=== PATIENT | female | born 1990 | race Caucasian/White ===

== ENCOUNTER 2023-07-15 09:59 | Emergency (ER) | payer OTHER, SELFPAY ==
[2023-07-15 10:41] VITALS: BP 133/70; PULSE 68; RESP 18; TEMP 37.1; O2SAT 99; BMI 23.4
[2023-07-15] MEDS: Ondansetron ODT 4 MG TAB.RAPDIS TRANSLINGU (10:47)
[2023-07-15 12:07] LABS: MANUAL DIFF FLAG NO
[2023-07-15 12:09] LABS: Basophils Percent Auto 0.5 % (0-2); Eosinophils Absolute Auto 0.5 X10*3/uL (0.0-0.4); Eosinophils Percent Auto 6.2 % (0-4); Hematocrit 43.1 % (37.0-47.0); Hemoglobin 14.7 g/dl (12.0-16.0); Imm Gran Abs Auto 0.02 X10*3/uL (0.00-0.03); Imm Gran Pct Auto 0.3 % (0.0-0.4); Lymphocytes Absolute Auto 2.3 X10*3/uL (1.2-4.9); Mean Corpuscular HGB Conc 34.1 g/dl (31.0-35.0); Mean Corpuscular Hemoglobin 30.8 pg (27.0-33.0); Mean Corpuscular Volume 90.2 fL (80.0-98.0); Mean Platelet Volume 10.2 fL (9.4-12.3); Monocytes Absolute Auto 0.4 X10*3/uL (0.1-1.2); Monocytes Percent Auto 5.4 % (2-11); Neutrophils Absolute Auto 4.6 x10*3/uL (2.0-8.3); Neutrophils Percent Auto 58.6 % (45-73); Platelet Count 263 X10*3/uL (160-400); Red Blood Count 4.78 X10*6/uL (4.20-5.50); Red Cell Distribution Width 12.5 % (11.0-16.0); White Blood Count 7.9 X10*3/uL (4.8-10.8)
[2023-07-15 12:10] LABS: Appearance Urine Cloudy; Color Urine Yellow; Glucose Urine UA Negative (Negative); Leukocyte Esterase Urine Trace (Negative); Nitrite Urine Negative (Negative); Specific Gravity - Urine 1.025 (1.005-1.025); UMIC TRIGGER UACC YES; Urine Blood Negative (Negative); Urine Ketones 80 mg/dL (Negative); Urine Protein Trace mg/dL (Neg-Trace)
[2023-07-15 12:27] LABS: Bacteria Urine 2+ (None Seen); Hyaline Casts Urine 0-2 /LPF (0-2); RBC Urine 0-2 /HPF (0-2); Squamous Epithelial Cell Urine >20 /HPF (0-2); WBC Urine 0-5 /HPF (0-5)
[2023-07-15 12:34] LABS: Alanine Aminotransferase 15 U/L (0-31); Albumin Level 4.6 g/dL (3.5-5.0); Alkaline Phosphatase 77 U/L (39-117); Anion Gap 13 (12-20); Aspartate Amino Transferase 18 U/L (5-31); Bilirubin Total 0.8 mg/dL (0.0-1.0); Blood Urea Nitrogen 17 mg/dL (9-16); Calcium 10.2 mg/dL (8.4-10.2); Carbon Dioxide 25 mmol/L (22-29); Chloride 107 mmol/L (96-108); Creatinine Clr Calc Pharmacy 70.7; Estimated Glomerular Filt Rate > 60; Glucose Random 87 mg/dL (60-115); HCG Quantitative < 2 mIU/mL; Potassium 4.3 mmol/L (3.3-5.1); Sodium 141 mmol/L (135-145); Total Protein 8.1 g/dL (6.5-8.0)
--- NOTE | 2023-07-15 14:26 | ED.GENADULT ---
HPI - General Adult General Chief complaint: Nausea/Vomiting/Diarrhea Stated complaint: nausea vomiting Time Seen by Provider: 07/15/23 14:24 Source: patient, RN notes reviewed and old records reviewed Mode of arrival: ambulatory Limitations: no limitations History of Present Illness ED Provider: Nandini SCHULTZ narrative: 33-year-old female presents for evaluation of mid to upper abdominal pain as well as vomiting. She had diarrhea twice. Patient's symptoms started about 1 week ago. Denies any history abdominal surgeries but reports having had an endoscopy in the remote past Denies any fevers, chills No other complaints or concerns at this time Related Data Previous Rx's ?Medication ?Instructions ?Recorded ondansetron 4 mg disintegrating 4 mg PO Q8H PRN nausea and 07/15/23 tablet vomiting #20 tabs Allergies Allergy/AdvReac Type Severity Reaction Status Date / Time acetaminophen [Percocet] Allergy Unknown hives Verified 07/15/23 10:42 oxycodone [Percocet] Allergy Unknown hives Verified 07/15/23 10:42 No Known Allergies Allergy Unverified 10/29/19 17:09 Review of Systems Constitutional: Constitutional: Denies body ache(s), Denies chills, Denies fever(s) and Denies headache(s) Eyes: Eyes: Denies blurry vision ENT: Denies headache(s) Cardiovascular: Cardiovascular: Denies chest pain and Denies dyspnea Respiratory: Respiratory: Denies cough and Denies dyspnea Gastrointestinal: Gastrointestinal: Reports abdominal pain, Denies hematochezia, Reports diarrhea, Reports nausea and Reports vomiting Genitourinary: Genitourinary: Denies dysuria Musculoskeletal: Musculoskeletal: Denies back pain Integumentary/Breasts: Skin/Breast: Denies rash Neurologic: Denies headache(s) [facility] Social History Social History Advance Directives: No Advance Directives Information Provided: No Do you have a plan to hurt others: No Plan Physical Exam ED Vital Signs: Vital Signs - 24 hr 07/15/23 10:41 07/15/23 14:27 07/15/23 14:33 Temperature 98.8 F 98.4 F Pulse Rate 68 67 67 Respiratory Rate 18 18 18 Blood Pressure 133/70 99/65 99/65 Pulse Oximetry 99 100 100 Oxygen Delivery Method Room Air Room Air Room Air BMI result Body Mass Index 23.4 Const General: healthy appearing, comfortable, no acute distress, alert and awake Nutritional Appearance: well nourished Orientation/consciousness: patient oriented x3 HENMT Head: Yes normocephalic and Yes atraumatic Eyes Eyelids: Yes eyelids normal Conjunctivae: conjunctivae normal Sclerae: sclerae normal Corneas: corneas normal Pupils: Equal, round and reactive pupils present EOM: EOMs intact bilaterally Neck Neck: Yes full ROM Resp Effort & Inspection: normal respiratory effort, able to speak in complete sentences and not labored GI Inspection: No distended Palpation (GI): Soft to palpation, not firm, nontender, no guarding and not rigid Skin General skin exam: elasticity normal Neuro General: patient oriented x3 Cranial nerves: Yes Equal, round and reactive pupils present and Yes Bilaterally intact EOM present Cognition (Neuro): normal cognition Extrem Other: Moving all extremities well without any obvious deformities Medications Administered Discontinued Medications Generic Name Dose Route Start Last Admin Trade Name Freq PRN Reason Stop Dose Admin Ondansetron HCl 4 mg 07/15/23 10:45 07/15/23 10:47 Ondansetron Odt 4 Mg Tab.Rapdis TRANSLINGU 07/15/23 10:46 4 mg ONCE ONE Administration Medical Decision Making Medical Decision Making [facility] Narrative: 33-year-old female presents for evaluation of vomiting abdominal pain x1 week. On exam she has no right upper quadrant right lower quadrant tenderness. Her vital signs are stable, labs reviewed and reassuring. She has no leukocytosis or left shift. No electrolyte abnormalities. BUN is slightly above normal at 17 which may be related to her vomiting. Creatinine is within normal limits. Patient's LFTs are within normal limits. She has not . The patient reports that her symptoms have improved after receiving antiemetics, she has currently not experiencing abdominal pain in his nontender exam. Given the reassuring vitals, labs and exam, imaging was deferred at this time. Patient did have 2+ bacteria in her urine but had over 20 epithelial cells. She has no UTI symptoms. Likely contaminant Differential Diagnosis Differential Diagnoses: The differential diagnosis associated with the presentation includes Gastroenteritis Abdominal pain Gastritis Viral syndrome Cholelithiasis Pancreatitis Acute cholecystitis Lab Data [facility] Lab Attestation statement: I reviewed the patient's lab results. Please see medical decision making above 07/15/23 11:58 07/15/23 11:58 Labs: Lab Results 07/15/23 07/15/23 Range/Units 11:58 12:02 WBC 7.9 (4.8-10.8) X10*3/uL RBC 4.78 (4.20-5.50) X10*6/uL Hgb 14.7 (12.0-16.0) g/dl Hct 43.1 (37.0-47.0) % MCV 90.2 (80.0-98.0) fL MCH 30.8 (27.0-33.0) pg MCHC 34.1 (31.0-35.0) g/dl RDW 12.5 (11.0-16.0) % Plt Count 263 (160-400) X10*3/uL MPV 10.2 (9.4-12.3) fL Immature Gran % (Auto) 0.3 (0.0-0.4) % Neut % (Auto) 58.6 (45-73) % Lymph % (Auto) 29.0 (20-40) % [place] % (Auto) 5.4 (2-11) % Eos % (Auto) 6.2 H (0-4) % Baso % (Auto) 0.5 (0-2) % Lymph # (Auto) 2.3 (1.2-4.9) X10*3/uL [place] # (Auto) 0.4 (0.1-1.2) X10*3/uL Eos # (Auto) 0.5 H (0.0-0.4) X10*3/uL Baso # (Auto) 0.0 (0.0-0.2) X10*3/uL Abs Immat Gran (auto) 0.02 (0.00-0.03) X10*3/uL Absolute Neuts (auto) 4.6 (2.0-8.3) x10*3/uL Absolute Nucleated RBC 0.000 (0.0-0.012) X10*3/uL Nucleated RBC % (auto) 0.0 (0.0-0.2) /100WBC Sodium 141 (135-145) mmol/L Potassium 4.3 (3.3-5.1) mmol/L Chloride 107 (96-108) mmol/L Carbon Dioxide 25 (22-29) mmol/L Anion Gap 13 (12-20) BUN 17 H (9-16) mg/dL Creatinine 0.82 (0.5-1.4) mg/dL Estim Creat Clear Calc 70.7 Estimated GFR > 60 Random Glucose 87 (60-115) mg/dL Calcium 10.2 (8.4-10.2) mg/dL Total Bilirubin 0.8 (0.0-1.0) mg/dL AST 18 (5-31) U/L ALT 15 (0-31) U/L Alkaline Phosphatase 77 (39-117) U/L Total Protein 8.1 H (6.5-8.0) g/dL Albumin 4.6 (3.5-5.0) g/dL Beta HCG, Quant < 2 mIU/mL Urine Color Yellow Urine Appearance Cloudy Urine pH 7.0 (5.0-9.0) Ur Specific [place] 1.025 (1.005-1.025) Urine Protein Trace (Neg-Trace) mg/dL Urine Glucose (UA) Negative (Negative) mg/dL Urine Ketones 80 (Negative) mg/dL Urine Blood Negative (Negative) Urine Nitrite Negative (Negative) Ur Leukocyte Esterase Trace H (Negative) Urine RBC 0-2 (0-2) /HPF Urine WBC 0-5 (0-5) /HPF Ur Squamous Epith Cells >20 (0-2) /HPF Urine Bacteria 2+ (None Seen) Hyaline Casts 0-2 (0-2) /LPF Discharge Plan Discharge Clinical Impression: Abdominal pain with vomiting Patient Disposition: Home, Self-Care Instructions: Acute Nausea and Vomiting (ED) Additional Instructions: Your workup in the ER today was reassuring. This includes your blood work Use Zofran as needed for nausea/vomiting Drink lots of fluids, small sips at a time Prescriptions: New ondansetron 4 mg tablet,disintegrating 4 mg PO Q8H PRN (Reason: nausea and vomiting) Qty: 20 0RF Interventions: ED Discharge Assessment Last Done: 07/15/23 14:33 Discharge Date/Time: 07/15/23 14:36 Print Language: Wallisian
[2023-07-15 14:27] VITALS: BP 99/65; PULSE 67; RESP 18; O2SAT 100
[2023-07-15 14:33] VITALS: BP 99/65; PULSE 67; RESP 18; TEMP 36.9; O2SAT 100
== END 2023-07-15 14:36 | disposition home or self-care (01) ==
PROVIDERS: Emergency Provider Emergency Medicine
DX: R10.10 Upper abdominal pain, unspecified (principal); R11.10 Vomiting, unspecified
CPT/HCPCS: 36415; 80053; 81001; 84702; 85025; 99283

== ENCOUNTER 2024-02-20 19:33 | Emergency (ER) | payer OTHER, SELFPAY ==
[2024-02-20 20:00] VITALS: PULSE 89; RESP 24; TEMP 36.7; O2SAT 97; BMI 21.3
--- NOTE | 2024-02-20 20:00 | ED.GENADULT ---
HPI - General Adult General Chief complaint: Dyspnea Stated complaint: sob,cough Time Seen by Provider: 02/20/24 23:04 Source: patient, RN notes reviewed and old records reviewed Mode of arrival: ambulatory Limitations: no limitations History of Present Illness ED Provider: Nandini SCHULTZ narrative: 33-year-old female presents for evaluation of shortness of breath and chest tightness. Patient reports that she is approximately 3 months . She is . Denies any issues with any previous pregnancies. She states that approximately once every year in the winter she has similar symptoms with shortness of breath and wheezing She does not have any prescribed medications for asthma and reports that she is not diagnosed with asthma Denies any chest pain, leg swelling Related Data Previous Rx's ?Medication ?Instructions ?Recorded ondansetron 4 mg disintegrating 4 mg PO Q8H PRN nausea and 07/15/23 tablet vomiting #20 tabs albuterol sulfate 90 mcg/actuation 2 puff inhalation Q4-6H PRN 02/20/24 aerosol inhaler shortness of breath or wheezing #8.5 grams Allergies Allergy/AdvReac Type Severity Reaction Status Date / Time acetaminophen [Percocet] Allergy Unknown hives Verified 02/20/24 20:02 oxycodone [Percocet] Allergy Unknown hives Verified 02/20/24 20:02 No Known Allergies Allergy Verified 02/20/24 20:02 Review of Systems Constitutional: Constitutional: Denies body ache(s), Denies chills, Denies fever(s) and Denies headache(s) ENT: Denies vertigo and Denies headache(s) Cardiovascular: Cardiovascular: Denies chest pain and Reports dyspnea Respiratory: Respiratory: Reports cough, Reports dyspnea and Reports wheezing Gastrointestinal: Gastrointestinal: Denies abdominal pain, Denies nausea and Denies vomiting Integumentary/Breasts: Skin/Breast: Denies rash Neurologic: Denies vertigo and Denies headache(s) Allergic/Immunologic: Allergic/Immunologic: Reports wheezing PMFSH Social History Social History Advance Directives: No Advance Directives Information Provided: No Do you have a plan to hurt others: No Plan Physical Exam ED Vital Signs: Vital Signs - 24 hr 02/20/24 20:00 02/20/24 22:20 02/20/24 22:52 Temperature 98.1 F 98.6 F Pulse Rate 89 96 85 Respiratory Rate 24 H 16 18 Blood Pressure 110/66 Pulse Oximetry 97 99 Oxygen Delivery Method Room Air Room Air BMI result Body Mass Index 21.3 Const General: healthy appearing, comfortable, no acute distress, alert and awake Nutritional Appearance: well nourished Orientation/consciousness: patient oriented x3 HENMT Head: Yes normocephalic and Yes atraumatic Eyes Eyelids: Yes eyelids normal Conjunctivae: conjunctivae normal Sclerae: sclerae normal Corneas: corneas normal Pupils: Equal, round and reactive pupils present EOM: EOMs intact bilaterally Neck Neck: Yes full ROM Resp Other: Diminished but otherwise clear to auscultation Effort & Inspection: normal respiratory effort, able to speak in complete sentences and not labored Auscultation: clear to auscultation bilaterally Skin General skin exam: elasticity normal Neuro General: patient oriented x3 Cranial nerves: Yes Equal, round and reactive pupils present and Yes Bilaterally intact EOM present Cognition (Neuro): normal cognition Extrem Other: Moving all extremities well without any obvious deformities Course Course Course Narrative: This is a rapid medical exam performed by Brianna Ribera NP: Additional HPI, ROS, PE not included below will be deferred to primary provider. Patient is a 33-year-old female, LMP 11/7, with no history of asthma presenting with complaint of shortness of breath and cough productive of thick sputum for the past month. Has not seen OB yet for this but has appointment scheduled at [facility]. Denies fevers. States she is the only one with these symptoms. Only able to speak in 2-3 word sentences, use of accessory muscles, audible wheezing, O2 100% on room air. Plan: labs, viral serology, cxr Medications Administered Discontinued Medications Generic Name Dose Route Start Last Admin Trade Name Freq PRN Reason Stop Dose Admin Albuterol Sulfate 7.5 mg/ 10 mg 02/20/24 22:45 02/20/24 22:51 Albuterol Sulfate 2.5 mg INHALE 02/20/24 22:46 10 mg ONCE ONE Administration Medical Decision Making Medical Decision Making MDM Narrative: 33-year-old female presents for evaluation of shortness of breath and wheezing. Per triage provider, the patient was quite wheezy on exam and a. To be very short of breath. During my evaluation the patient has already finished a nebulizer treatment and reports that she feels much better. Her lungs are diminished but otherwise clear to auscultation. There were no adventitious breath sounds noted. X-ray was canceled as the patient is . She is not hypoxic, she reports feeling much better with albuterol. I do not see any indication for emergent imaging at this time, especially given the . She is negative for influenza, COVID-19, RSV. Labs were unremarkable. We will discharge the patient with an albuterol inhaler Differential Diagnosis Differential Diagnoses: The differential diagnosis associated with the presentation includes Asthma Dyspnea Shortness of breath Bronchitis Pneumonia Lab Data MDM Lab Attestation statement: I reviewed the patient's lab results. No leukocytosis or significant anemia. Normal platelet count. No electrolyte abnormalities warranting intervention 02/20/24 20:07 02/20/24 20:07 Labs: Lab Results 02/20/24 Range/Units 20:07 WBC 9.0 (4.8-10.8) X10*3/uL RBC 4.12 L (4.20-5.50) X10*6/uL Hgb 12.6 (12.0-16.0) g/dl Hct 35.8 L (37.0-47.0) % MCV 86.9 (80.0-98.0) fL MCH 30.6 (27.0-33.0) pg MCHC 35.2 H (31.0-35.0) g/dl RDW 11.9 (11.0-16.0) % Plt Count 265 (160-400) X10*3/uL MPV 10.3 (9.4-12.3) fL Immature Gran % (Auto) 0.2 (0.0-0.4) % Neut % (Auto) 56.3 (45-73) % Lymph % (Auto) 30.2 (20-40) % [place] % (Auto) 6.6 (2-11) % Eos % (Auto) 6.3 H (0-4) % Baso % (Auto) 0.4 (0-2) % Lymph # (Auto) 2.7 (1.2-4.9) X10*3/uL [place] # (Auto) 0.6 (0.1-1.2) X10*3/uL Eos # (Auto) 0.6 H (0.0-0.4) X10*3/uL Baso # (Auto) 0.0 (0.0-0.2) X10*3/uL Abs Immat Gran (auto) 0.02 (0.00-0.03) X10*3/uL Absolute Neuts (auto) 5.1 (2.0-8.3) x10*3/uL Absolute Nucleated RBC 0.000 (0.0-0.012) X10*3/uL Nucleated RBC % (auto) 0.0 (0.0-0.2) /100WBC Sodium 136 (135-145) mmol/L Potassium 3.9 (3.3-5.1) mmol/L Chloride 107 (96-108) mmol/L Carbon Dioxide 24 (22-29) mmol/L Anion Gap 9 L (12-20) BUN 17 H (9-16) mg/dL Creatinine 0.72 (0.5-1.4) mg/dL Estim Creat Clear Calc 80.5 Estimated GFR > 60 Random Glucose 81 (60-115) mg/dL Calcium 9.4 D (8.4-10.2) mg/dL Total Bilirubin 0.3 (0.0-1.0) mg/dL AST 17 (5-31) U/L ALT 16 (0-31) U/L Alkaline Phosphatase 48 (39-117) U/L Total Protein 7.3 (6.5-8.0) g/dL Albumin 4.1 (3.5-5.0) g/dL Influenza Type A (PCR) NEGATIVE (Negative) Influenza Type B (PCR) NEGATIVE (Negative) RSV RNA Qual (PCR) NEGATIVE (Negative) SARS-CoV-2 RNA (RT-PCR) NEGATIVE (Negative) Discharge Plan Discharge Clinical Impression: Acute dyspnea Patient Disposition: Home, Self-Care Instructions: Asthma (ED) Additional Instructions: You likely have undiagnosed asthma. Use the albuterol inhaler 2 puffs every 4 hours as needed for wheezing Your blood work today was reassuring. You do not have the flu, COVID, or RSV. Follow-up with your primary doctor, return for new or worsening symptoms I would let your OBGYN know about your new prescription of albuterol Prescriptions: New albuterol sulfate 90 mcg/actuation HFA aerosol inhaler 2 puff inhalation Q4-6H PRN (Reason: shortness of breath or wheezing) Qty: 8.5 0RF No Action ondansetron 4 mg tablet,disintegrating 4 mg PO Q8H PRN (Reason: nausea and vomiting) Qty: 20 0RF Print Language: Indonesian
[2024-02-20 20:19] LABS: MANUAL DIFF FLAG NO
[2024-02-20 20:22] LABS: Basophils Percent Auto 0.4 % (0-2); Eosinophils Absolute Auto 0.6 X10*3/uL (0.0-0.4); Eosinophils Percent Auto 6.3 % (0-4); Hematocrit 35.8 % (37.0-47.0); Hemoglobin 12.6 g/dl (12.0-16.0); Imm Gran Abs Auto 0.02 X10*3/uL (0.00-0.03); Imm Gran Pct Auto 0.2 % (0.0-0.4); Lymphocytes Absolute Auto 2.7 X10*3/uL (1.2-4.9); Lymphocytes Percent Auto 30.2 % (20-40); Mean Corpuscular HGB Conc 35.2 g/dl (31.0-35.0); Mean Corpuscular Hemoglobin 30.6 pg (27.0-33.0); Mean Corpuscular Volume 86.9 fL (80.0-98.0); Mean Platelet Volume 10.3 fL (9.4-12.3); Monocytes Absolute Auto 0.6 X10*3/uL (0.1-1.2); Monocytes Percent Auto 6.6 % (2-11); Neutrophils Absolute Auto 5.1 x10*3/uL (2.0-8.3); Neutrophils Percent Auto 56.3 % (45-73); Platelet Count 265 X10*3/uL (160-400); Red Blood Count 4.12 X10*6/uL (4.20-5.50); Red Cell Distribution Width 11.9 % (11.0-16.0)
[2024-02-20 20:37] LABS: Alanine Aminotransferase 16 U/L (0-31); Albumin Level 4.1 g/dL (3.5-5.0); Alkaline Phosphatase 48 U/L (39-117); Anion Gap 9 (12-20); Aspartate Amino Transferase 17 U/L (5-31); Bilirubin Total 0.3 mg/dL (0.0-1.0); Blood Urea Nitrogen 17 mg/dL (9-16); Calcium 9.4 mg/dL (8.4-10.2); Carbon Dioxide 24 mmol/L (22-29); Chloride 107 mmol/L (96-108); Creatinine Clr Calc Pharmacy 80.5; Estimated Glomerular Filt Rate > 60; Glucose Random 81 mg/dL (60-115); Potassium 3.9 mmol/L (3.3-5.1); Sodium 136 mmol/L (135-145); Total Protein 7.3 g/dL (6.5-8.0)
[2024-02-20 20:56] LABS: Influenza A PCR NEGATIVE (Negative); Influenza B PCR NEGATIVE (Negative); Resp Syncy Virus RNA Qual PCR NEGATIVE (Negative); SARS COV2 PCR INHOUSE NEGATIVE (Negative)
[2024-02-20 22:20] VITALS: BP 110/66; PULSE 96; RESP 16; TEMP 37; O2SAT 99
[2024-02-20] MEDS: Albuterol Sulfate 7.5 MG, Albuterol Sulfate (0.083%) 2.5 MG 10 MG INHALE (22:51)
[2024-02-20 22:52] VITALS: PULSE 85; RESP 18; O2SAT 97
[2024-02-20 23:43] VITALS: BP 00/00; PULSE 85; RESP 18; TEMP 36.9; O2SAT 100
== END 2024-02-20 23:44 | disposition home or self-care (01) ==
PROVIDERS: Registered Nurse Emergency; Emergency Provider Emergency Medicine
DX: R06.00 Dyspnea, unspecified (principal); R06.02 Shortness of breath; R05.9 Cough, unspecified; Z03.818 Encounter for observation for suspected exposure to other biological agents ruled out
CPT/HCPCS: 0241U; 80053; 85025; 94640; 99284

== ENCOUNTER 2024-03-15 06:48 | Emergency (ER) | payer OTHER, SELFPAY ==
[2024-03-15] VITALS (14 sets, daily range): BP systolic 81–112; BP diastolic 35–66; PULSE 123–154; RESP 16–22; TEMP 37.2–38.9; O2SAT 93–100; BMI 23.5
--- NOTE | ~2024-03-15 | US_ITS ---
CLINICAL HISTORY: b l flank pain US Renal Comparison: None Findings: Right kidney normal size and echotexture, 9.5 cm length. Left kidney normal size and echotexture, 9.5 cm length. No collecting system dilatation of either kidney. Normal color Doppler. IMPRESSION: 1. Normal kidneys. This document has been electronically signed by: Brant Hamilton MD on 03/15/2024 09:44:01
[2024-03-15 07:19] LABS: Hematocrit 31.6 % (37.0-47.0); Mean Corpuscular HGB Conc 34.8 g/dl (31.0-35.0); Mean Corpuscular Hemoglobin 30.7 pg (27.0-33.0); Mean Corpuscular Volume 88.3 fL (80.0-98.0); Mean Platelet Volume 10.2 fL (9.4-12.3); Platelet Count 177 X10*3/uL (160-400); Red Blood Count 3.58 X10*6/uL (4.20-5.50); Red Cell Distribution Width 12.8 % (11.0-16.0); White Blood Count 5.9 X10*3/uL (4.8-10.8)
[2024-03-15 07:26] LABS: IDNOW Serial# 08D9AD1C; Strep A Nucleic Acid Negative (Negative)
[2024-03-15 07:27] LABS: UPreg QC Valid YES; Urine Pregnancy POSITIVE (NEGATIVE)
[2024-03-15 07:37] LABS: Alanine Aminotransferase 18 U/L (0-31); Albumin Level 3.8 g/dL (3.5-5.0); Alkaline Phosphatase 42 U/L (39-117); Anion Gap 15 (12-20); Aspartate Amino Transferase 31 U/L (5-31); Bilirubin Direct 0.1 mg/dL (0.0-0.5); Bilirubin Total 0.3 mg/dL (0.0-1.0); Blood Urea Nitrogen 8 mg/dL (9-16); Calcium 8.5 mg/dL (8.4-10.2); Carbon Dioxide 21 mmol/L (22-29); Chloride 105 mmol/L (96-108); Creatinine Clr Calc Pharmacy 84.1; Estimated Glomerular Filt Rate > 60; Glucose Random 111 mg/dL (60-115); Lipase 19 U/L (8-78); Magnesium 1.8 mg/dL (1.6-2.6); Potassium 3.6 mmol/L (3.3-5.1); Sodium 137 mmol/L (135-145); Total Protein 7.1 g/dL (6.5-8.0)
[2024-03-15 07:46] LABS: SLIDE REVIEW MANUAL DIFF
[2024-03-15] MEDS: levalbuterol HCL 1.25 MG/3 ML VIAL.NEB 2.5 MG INHALE (07:52)
--- NOTE | 2024-03-15 07:59 | PC.NURSE ---
pt receiving breathing tx via RT at this time.
[2024-03-15 08:02] LABS: HCG Quantitative 99047 mIU/mL
[2024-03-15 08:06] LABS: Neutrophils Percent Manual 79 % (45-73)
[2024-03-15 08:08] LABS: Band Neutrophils Percent 16 % (3-5); Lymphocytes Absolute Manual 0.3 X10*3/uL (1.2-4.9); Lymphocytes Percent Manual 5 % (20-40); Neutrophils Absolute Manual 5.6 X10*3/uL (2.0-8.3); Platelet Estimate NORMAL (NORMAL); Platelet Morphology Comment NORMAL; RBC Morphology NORMAL
[2024-03-15 08:11] LABS: Influenza A PCR POSITIVE (Negative); Influenza B PCR NEGATIVE (Negative); Resp Syncy Virus RNA Qual PCR NEGATIVE (Negative); SARS COV2 PCR INHOUSE NEGATIVE (Negative)
[2024-03-15] MEDS: SODIUM CHLORIDE 1635 ML IV (08:21)
[2024-03-15] MEDS: Acetaminophen 325 MG TABLET 975 MG PO (08:21)
--- NOTE | 2024-03-15 08:35 | PC.NURSE ---
sepsis workup initiated. 18gIV placed in the right AC - labs obtained/sent to lab. 2nd set of cultures obtained by tech. sepsis bolus infusing at this time. abx administered per provider order. pt remains tachycardic. hypotensive. febrile. tylneol administered per provider order. effectiveness pending. wob decreased s/p albuterol treatment. pt remains in upright position to promote patent airway. no sob/wob noted at this time. respirations even/unlabored. plan of care ongoing. call boothe placed within reach.
--- NOTE | 2024-03-15 08:41 | ED.ASTHMA ---
HPI - Asthma General Chief Complaint: Asthma Stated Complaint: SOB Time Seen by Provider: 03/15/24 08:09 Source: patient Mode of arrival: ambulatory Limitations: no limitations History of Present Illness ED Provider: HEAVENLY Luna HPI Narrative: This is a 33-year-old female who is currently 11.5 weeks presents with fatigue, malaise, myalgias, chest pain, fevers, chills, flank pain, abdominal pain, palpitations, cough, shortness of breath, nausea, vomit ongoing for the past few days. She reports multiple sick contacts at home with similar symptoms. She reports she is currently being treated with Macrobid for UTI however she has been having nausea and vomiting and not able to keep anything down therefore she has not really been keeping down her antibiotics. She reports it has been a rough 3-4 days. Related Data Previous Rx's ?Medication ?Instructions ?Recorded ondansetron 4 mg disintegrating 4 mg PO Q8H PRN nausea and 07/15/23 tablet vomiting #20 tabs albuterol sulfate 90 mcg/actuation 2 puff inhalation Q4-6H PRN 02/20/24 aerosol inhaler shortness of breath or wheezing #8.5 grams Allergies Allergy/AdvReac Type Severity Reaction Status Date / Time No Known Allergies Allergy Verified 03/15/24 06:57 Review of Systems Review of Systems: Yes all other systems are reviewed and are negative [facility] Past Medical History Attestation statement: The following information was validated with the patient. Source: old records reviewed and nursing notes reviewed Social History Social History Smoked in Last 30 Days: No Use of substances other than those prescribed or required for medical reasons: No Advance Directives: No Advance Directives Information Provided: No Do you have a plan to hurt others: No Plan Patient : Yes Physical Exam Vital Signs: Vital Signs: Last Vital Signs Temp 99.0 F 03/15/24 09:42 Pulse 126 H 03/15/24 10:07 Resp 18 03/15/24 10:07 BP 90/41 L 03/15/24 10:07 Pulse Ox 98 03/15/24 10:07 O2 Del Method Room Air 03/15/24 10:07 BMI result Body Mass Index 23.5 Hypotension, tachycardia and fever Fluids, ATbX and tylenol ordered Appearance: Alert.? Oriented X3.? No acute distress.? Head: Normocephalic, atraumatic, no step-offs or deformities Eyes: Pupils equal, round and reactive to light.? Neck: Normal inspection.? Neck supple.? CVS: Rapid heart rate around 150-160 beats per minute with normal rhythm.? Pulses normal.? Respiratory: No respiratory distress.? Breath sounds normal.? Abdomen: Soft and diffuse abdominal discomfort.? Skin: Skin warm and dry.? Normal skin color.? Normal skin turgor.? Extremities: No lower extremity edema.? No calf ttp. 5/5 strength to bilateral upper and lower extremities Back: Discomfort to bilateral flank region Neuro: Oriented X 3.? No motor deficit.? No sensory deficit. CN 2-12 intact. Course Reevaluation(s) Reevaluation #1: CBC with no leukocytosis, on and a normocytic anemia noted likely anemia of . She does have a bandemia, neutrophil predominance and lactic acidosis of 2.6 . Chemistry unremarkable. Patient receiving ceftriaxone, fluids. She is noted to be flu A positive. Urine is pending however she does have UTI symptoms and known urinary tract infection currently on Macrobid. Banner negative. Strep negative. I discussed this with our hospitalist who do not feel comfortable admitting this patient here. I discuss this with Dr. Emely Schwab who feels as though patient needs to be admitted however should reach out to [facility] as [facility] Whole reach out to them at this time. Time: 09:15 Reevaluation #2: Patient now hypotensive, lactated Ringer's ordered in addition to normal saline Time: 09:23 Reevaluation #3: [facility] is closed due to capacity. Patient does not need admission however they are unable to accept patient. Will call [facility] at this time. Time: 09:42 Additional Reevaluation(s): 0948 Renal ultrasound normal. Patients pressure down 86/38 LR initiated. 0950 Call out to [facility]. 100[address] [facility] Closed due to capacity 1006 Will reach back out to [facility] to see if the hospitalist service will take her as I have not had luck with [facility] or [facility]. Will also reach out to [facility] 1015 Patient will be going to [facility] ED Dr. Robert [phone] Medications Administered Generic Name Dose Route Start Last Admin Trade Name Freq PRN Reason Stop Dose Admin Lactated Ringer's 1,000 mls @ 999 mls/hr 03/15/24 09:30 03/15/24 09:26 Lr IV 03/15/24 10:30 999 mls/hr .Q1H1M THOMAS Administration Discontinued Medications Generic Name Dose Route Start Last Admin Trade Name Freq PRN Reason Stop Dose Admin Acetaminophen 975 mg 03/15/24 08:05 03/15/24 08:21 Acetaminophen 325 Mg Tablet PO 03/15/24 08:06 975 mg ONCE ONE Administration Ceftriaxone Sodium 1 gm 03/15/24 08:48 03/15/24 08:52 Ceftriaxone Sodium 1 Gm Vial IVPUSH 03/15/24 08:49 1 gm ONCE ONE Administration Piperacillin Sod/Tazobactam 50 mls @ 100 mls/hr 03/15/24 08:09 03/15/24 08:50 Sod 3.375 gm/ Sodium Chloride IV 03/15/24 08:38 Not Given ONCE ONE Sodium Chloride 1,635 mls @ 1,635 mls/hr 03/15/24 08:09 03/15/24 09:21 Ns 30 ml/kg infuse over 1 hr (1635 ml) 03/15/24 09:08 Infused IV Infusion .Q1H STA Levalbuterol HCl 2.5 mg 03/15/24 07:47 03/15/24 07:52 Levalbuterol Hcl 1.25 Mg/3 Ml Vial.Neb INHALE 03/15/24 07:48 2.5 mg ONCE ONE Administration Medical Decision Making Medical Decision Making [facility] Narrative: 0844 33 year old female presents w/ multiple complaints ( please refer to HPI) PE diffuse abd discomfort, tachycardia, bilateral flank discomfort. patient appears unwell History and physical exam concerning for worsening UTI versus flu versus COVID versus RSV versus pyelonephritis. Patient is however nonviable. Less likely appendicitis, cholecystitis, diverticulitis, obstruction. Will rule out metabolic derangements. Plan labs, imaging, urine, fluids, Tylenol for fever. Differential Diagnosis Differential Diagnoses: The differential diagnosis associated with the presentation includes (History and physical exam concerning for worsening UTI versus flu versus COVID versus RSV versus pyelonephritis. Patient is however nonviable. Less likely appendicitis, cholecystitis, diverticulitis, obstruction. Will rule out metabolic derangements) Admission/Observation Consideration of admission/observation: Escalation of care including admission/observation considered Lab Data 03/15/24 07:09 03/15/24 07:09 Labs: Lab Results 03/15/24 03/15/24 03/15/24 Range/Units 07:05 07:06 07:09 WBC 5.9 (4.8-10.8) X10*3/uL RBC 3.58 L (4.20-5.50) X10*6/uL Hgb 11.0 L (12.0-16.0) g/dl Hct 31.6 L (37.0-47.0) % MCV 88.3 (80.0-98.0) fL MCH 30.7 (27.0-33.0) pg MCHC 34.8 (31.0-35.0) g/dl RDW 12.8 (11.0-16.0) % Plt Count 177 D (160-400) X10*3/uL MPV 10.2 (9.4-12.3) fL Immature Gran % (Auto) Cancelled Neut % (Auto) Cancelled Lymph % (Auto) Cancelled Banner % (Auto) Cancelled Eos % (Auto) Cancelled Baso % (Auto) Cancelled Lymph # (Auto) Cancelled Banner # (Auto) Cancelled Eos # (Auto) Cancelled Baso # (Auto) Cancelled Abs Immat Gran (auto) Cancelled Absolute Neuts (auto) Cancelled Absolute Nucleated RBC 0.000 (0.0-0.012) X10*3/uL Nucleated RBC % (auto) 0.0 (0.0-0.2) /100WBC Neutrophils % (Manual) 79 H (45-73) % Band Neutrophils % 16 H (3-5) % Lymphocytes % (Manual) 5 L (20-40) % Abs Neuts (Manual) 5.6 (2.0-8.3) X10*3/uL Lymphocytes # (Manual) 0.3 L (1.2-4.9) X10*3/uL Platelet Estimate NORMAL (NORMAL) Plt Morphology Comment NORMAL RBC Morphology NORMAL Smear Tech's Comments MANUAL DIFF Sodium 137 (135-145) mmol/L Potassium 3.6 (3.3-5.1) mmol/L Chloride 105 (96-108) mmol/L Carbon Dioxide 21 L (22-29) mmol/L Anion Gap 15 (12-20) BUN 8 L (9-16) mg/dL Creatinine 0.69 (0.5-1.4) mg/dL Estim Creat Clear Calc 84.1 Estimated GFR > 60 Random Glucose 111 (60-115) mg/dL Lactic Acid (0.5-2.0) mmol/L Calcium 8.5 D (8.4-10.2) mg/dL Magnesium 1.8 (1.6-2.6) mg/dL Total Bilirubin 0.3 (0.0-1.0) mg/dL Direct Bilirubin 0.1 (0.0-0.5) mg/dL AST 31 (5-31) U/L ALT 18 (0-31) U/L Alkaline Phosphatase 42 (39-117) U/L Troponin I High Sens < 2.7 (<3.5-17.0) ng/L Total Protein 7.1 (6.5-8.0) g/dL Albumin 3.8 (3.5-5.0) g/dL Lipase 19 (8-78) U/L Beta HCG, Quant 47921 mIU/mL Urine Test POSITIVE H (NEGATIVE) Monoscreen (Negative) Influenza Type A (PCR) POSITIVE A (Negative) Influenza Type B (PCR) NEGATIVE (Negative) RSV RNA Qual (PCR) NEGATIVE (Negative) SARS-CoV-2 RNA (RT-PCR) NEGATIVE (Negative) S. pyogenes GrpA DAT Negative (Negative) 03/15/24 Range/Units 08:19 WBC (4.8-10.8) X10*3/uL RBC (4.20-5.50) X10*6/uL Hgb (12.0-16.0) g/dl Hct (37.0-47.0) % MCV (80.0-98.0) fL MCH (27.0-33.0) pg MCHC (31.0-35.0) g/dl RDW (11.0-16.0) % Plt Count (160-400) X10*3/uL MPV (9.4-12.3) fL Immature Gran % (Auto) Neut % (Auto) Lymph % (Auto) Banner % (Auto) Eos % (Auto) Baso % (Auto) Lymph # (Auto) Banner # (Auto) Eos # (Auto) Baso # (Auto) Abs Immat Gran (auto) Absolute Neuts (auto) Absolute Nucleated RBC (0.0-0.012) X10*3/uL Nucleated RBC % (auto) (0.0-0.2) /100WBC Neutrophils % (Manual) (45-73) % Band Neutrophils % (3-5) % Lymphocytes % (Manual) (20-40) % Abs Neuts (Manual) (2.0-8.3) X10*3/uL Lymphocytes # (Manual) (1.2-4.9) X10*3/uL Platelet Estimate (NORMAL) Plt Morphology Comment RBC Morphology Smear Tech's Comments Sodium (135-145) mmol/L Potassium (3.3-5.1) mmol/L Chloride (96-108) mmol/L Carbon Dioxide (22-29) mmol/L Anion Gap (12-20) BUN (9-16) mg/dL Creatinine (0.5-1.4) mg/dL Estim Creat Clear Calc Estimated GFR Random Glucose (60-115) mg/dL Lactic Acid 2.6 H* (0.5-2.0) mmol/L Calcium (8.4-10.2) mg/dL Magnesium (1.6-2.6) mg/dL Total Bilirubin (0.0-1.0) mg/dL Direct Bilirubin (0.0-0.5) mg/dL AST (5-31) U/L ALT (0-31) U/L Alkaline Phosphatase (39-117) U/L Troponin I High Sens (<3.5-17.0) ng/L Total Protein (6.5-8.0) g/dL Albumin (3.5-5.0) g/dL Lipase (8-78) U/L Beta HCG, Quant mIU/mL Urine Test (NEGATIVE) Monoscreen Negative (Negative) Influenza Type A (PCR) (Negative) Influenza Type B (PCR) (Negative) RSV RNA Qual (PCR) (Negative) SARS-CoV-2 RNA (RT-PCR) (Negative) S. pyogenes GrpA DAT (Negative) Critical Care Time Critical Care Time Critical Care Time: Yes Total Critical Care Time: 45 Attestation: I attest to this time spent taking care of the patient, obtaining history, physical, reviewing labs, imaging, treatment of patients condition +/- specialist/hospitalist consult Discharge Plan Discharge Clinical Impression: UTI (urinary tract infection), Influenza A Patient Disposition: [facility] Transfer Details: [facility] ED --> ED Instructions: Urinary Tract Infection in Women (ED), Influenza (ED) Prescriptions: No Action ondansetron 4 mg tablet,disintegrating 4 mg PO Q8H PRN (Reason: nausea and vomiting) Qty: 20 0RF albuterol sulfate 90 mcg/actuation HFA aerosol inhaler 2 puff inhalation Q4-6H PRN (Reason: shortness of breath or wheezing) Qty: 8.5 0RF Print Language: Malawian
[2024-03-15 08:47] LABS: Lactic Acid 2.6 mmol/L (0.5-2.0)
[2024-03-15] MEDS: cefTRIAXone sodium 1 GM VIAL IVPUSH (08:52)
--- NOTE | 2024-03-15 08:53 | ECG_ITS ---
Test Reason : CP PALPITATION Blood Pressure : */* mmHG Vent. Rate : 130 BPM Atrial Rate : 130 BPM P-R Int : 124 ms QRS Dur : 82 ms QT Int : 304 ms P-R-T Axes : 72 86 -76 degrees QTcB Int : [address] & T wave abnormality, consider inferior ischemia ST & T wave abnormality, consider anterior ischemia Abnormal ECG When compared with ECG of 29-Jan-2011 22:43, T inversions more prominent Referred By: Angus Luna Electronically Signed By: MERLIN ILRIANO
--- NOTE | 2024-03-15 08:53 | PC.NURSE ---
zosyn held per provider order. medication then discontinued/undone in APR. pt did not receive dose of zosyn. pt now receiving IVP ceftriaxone. otherwise pt remains tachycardic/hypotensive. pt no longer febrile post medication administration. respirations remain even/unlabored. plan of care ongoing. call boothe placed within reach.
[2024-03-15 09:05] LABS: Monotest Negative (Negative)
--- NOTE | 2024-03-15 09:19 | PC.NURSE ---
ultrasound being completed at this time.
[2024-03-15 09:22] LABS: Troponin-I High Sensitivity < 2.7 ng/L (<3.5-17.0)
--- NOTE | 2024-03-15 09:25 | PC.NURSE ---
pt remains hypotensive/tachycardic despite previous interventions. provider notified/aware. additional 1L of LR now infusing at this time. effectiveness pending.
[2024-03-15] MEDS: Lactated Ringers 1,000 ML 999 ML IV (09:26)
[2024-03-15 10:27] LABS: Reflex Lactate? Lactic Acid Added
--- NOTE | 2024-03-15 10:43 | PC.NURSE ---
report given to VANCE Smith at this time.
--- NOTE | 2024-03-15 10:51 | PC.NURSE ---
attempted to call [facility] x 3 times. ER phone line says busy. will reattempt.
--- NOTE | 2024-03-15 10:55 | PC.NURSE ---
report given to GILBERT Ames at [facility] at this time.
== END 2024-03-15 10:57 | disposition short-term general hospital (02) ==
PROVIDERS: Physician Assistant; Emergency Provider Emergency Medicine
DX: O98.511 Other viral diseases complicating pregnancy, first trimester (principal); O23.40 Unspecified infection of urinary tract in pregnancy, unspecified trimester; R07.89 Other chest pain; R00.2 Palpitations; B97.89 Other viral agents as the cause of diseases classified elsewhere; N39.0 Urinary tract infection, site not specified; R06.02 Shortness of breath; B33.8 Other specified viral diseases; Z3A.11 11 weeks gestation of pregnancy; Z03.818 Encounter for observation for suspected exposure to other biological agents ruled out; Z79.899 Other long term (current) drug therapy
CPT/HCPCS: 0241U; 36415; 76775; 80053; 81025; 82248; 83605; 83690; 83735; 84484; 84702; 85007; 85027; 86308; 87040; 87651; 93005; 94640; 96365; 96366; 96375; 99285; J0696; J2543; J7120

== ENCOUNTER → 2024-03-15 08:47 | Outpatient (BNV) | payer OTHER, SELFPAY | PROVIDERS: Emergency Provider Emergency Medicine; Visit Provider Radiology Vascular & Interventional Radiology | DX: R10.9 Unspecified abdominal pain (principal) | CPT/HCPCS: 76775 ==

== ENCOUNTER → 2024-03-15 08:53 | Outpatient (BNV) | payer OTHER, SELFPAY | PROVIDERS: Emergency Provider Emergency Medicine; Visit Provider Internal Medicine | DX: R94.31 Abnormal electrocardiogram [ECG] [EKG] (principal) | CPT/HCPCS: 93010 ==